=== PATIENT | female | born 1995 | race Caucasian/White ===

== ENCOUNTER 2017-06-14 23:40 | Emergency (ER) | payer BC ==
[2017-06-15 00:10] LABS: #Basophils 0.1 thou/uL (0.0-0.2); #Eosinphils 0.4 thou/uL (0.0-0.7); #Lymphocytes 3.5 thou/uL (1.20-3.40); #Monocytes 0.6 thou/uL (0.11-0.59); #Neutrophils 4.9 thou/uL (1.40-6.50); %Basophils 1.1 % (0.0-1.0); %Eosinophils 3.9 % (0.0-10.0); %Lymphocytes 37.4 % (21.0-51.0); %Monocytes 6.1 % (0.0-10.0); %Neutrophils 51.6 % (42.0-75.0); Hemoglobin 14.2 g/dL (12.0-16.0); Mean Corpuscular HGB CONC 34.5 g/dL (32.0-36.0); Mean Corpuscular Hemoglobin 31.5 pg (27.0-31.0); Mean Corpuscular Volume 91.2 fl (81.0-99.0); Mean Platelet Volume 7.3 fL (7.4-10.4); Platelet Count 309 thou/uL (130-400); RBC Distribution Width 11.8 % (11.5-14.5); Red Blood Cell (RBC) Count 4.52 mill/uL (4.20-5.40); White Blood Cell (WBC) Count 9.4 thou/uL (4.8-10.8)
[2017-06-15 00:30] LABS: BHCG - Serum Negative (NEGATIVE); Pregs Control Background? CLEAR/WHITE (CLR/WHITE); Pregs Control Bar Appear? YES (CONTROL BAR)
[2017-06-15] MEDS ORDERED: Lidocaine 1% w/Epinephrine 1:100K 20 ML VIAL ONE (00:36)
[2017-06-15 00:37] LABS: Anion Gap 20 mmol/L (10-20); BUN (Urea Nitrogen) 6 mg/dL (7.0-18.7); Calc. Creatinine Clearance 0 mL/min (70-130); Calcium 9.7 mg/dL (7.8-10.44); Carbon Dioxide 17 mmol/L (22-29); Chloride 111 mmol/L (98-107); Estimated GFR-MDRD Greater than 90; Glucose 120 mg/dL (70-105); Potassium 4.9 mmol/L (3.5-5.1); Sodium 143 mmol/L (136-145)
[2017-06-15] MEDS ORDERED: Ketorolac Tromethamine 30 MG/ML VIAL ONE (02:04)
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
== END 2017-06-15 02:39 | disposition home or self-care (01) ==
LOC: ERS 23:40
DX: S01.01XA Laceration without foreign body of scalp, initial encounter (principal); S50.12XA Contusion of left forearm, initial encounter; F32.9 Major depressive disorder, single episode, unspecified; F41.9 Anxiety disorder, unspecified; Z79.899 Other long term (current) drug therapy; V47.0XXA Car driver injured in collision with fixed or stationary object in nontraffic accident, initial encounter
CPT/HCPCS: 12002; 70450; 72125; 80048; 84703; 85025; 86850; 86900; 86901; 96361; 96374; G0390; J1885; J2001

== ENCOUNTER 2019-10-13 08:54 | Outpatient (CLI) | payer BC | END 2019-10-13 08:55 | disposition home or self-care (01) | LOC: DTY/OP 08:54 | PROVIDERS: ATTEND Surgery | DX: E66.01 Morbid (severe) obesity due to excess calories (principal) | CPT/HCPCS: 97802 ==

== ENCOUNTER 2019-12-07 08:49 | Outpatient (CLI) | payer BC, OTHER ==
--- NOTE | 2019-12-07 16:10 | RAD ---
RADIOGRAPH CHEST 2 VIEW: DATE: 12/07/2019 HISTORY: 24-year-old female for preoperative clearance FINDINGS: There is no airspace density, pulmonary edema, pleural effusion, or pneumothorax. IMPRESSION: No acute pulmonary findings.
[2019-12-07 18:24] LABS: #Basophils 0.1 thou/uL (0.0-0.2); #Eosinphils 0.1 thou/uL (0.0-0.7); #Lymphocytes 2.3 thou/uL (1.20-3.40); #Monocytes 0.4 thou/uL (0.11-0.59); #Neutrophils 4.5 thou/uL (1.40-6.50); %Basophils 1.1 % (0.0-1.0); %Eosinophils 1.4 % (0.0-10.0); %Lymphocytes 31.5 % (21.0-51.0); %Monocytes 5.4 % (0.0-10.0); %Neutrophils 60.6 % (42.0-75.0); Hemoglobin 12.6 g/dL (12.0-16.0); Mean Corpuscular HGB CONC 32.9 g/dL (32.0-36.0); Mean Corpuscular Hemoglobin 29.1 pg (27.0-31.0); Mean Corpuscular Volume 88.5 fL (78.0-98.0); Mean Platelet Volume 8.3 fL (7.4-10.4); Platelet Count 273 thou/uL (130-400); RBC Distribution Width 12.6 % (11.5-14.5); Red Blood Cell (RBC) Count 4.34 mill/uL (4.20-5.40); White Blood Cell (WBC) Count 7.3 thou/uL (4.8-10.8)
[2019-12-07 19:27] LABS: Hemoglobin A1c 5.6 % (4.0-6.0)
[2019-12-07 19:44] LABS: BHCG - Serum Negative (NEGATIVE); Pregs Control Background? CLEAR/WHITE (CLR/WHITE); Pregs Control Bar Appear? YES (CONTROL BAR)
[2019-12-07 21:56] LABS: ALT (SGPT) 78 U/L (8-55); AST (SGOT) 32 U/L (5-34); Albumin 4.3 g/dL (3.5-5.0); Alkaline Phosphatase 43 U/L (40-110); Anion Gap 16 mmol/L (10-20); BUN (Urea Nitrogen) 8 mg/dL (7.0-18.7); Bilirubin, Total 0.2 mg/dL (0.2-1.2); Calc. Creatinine Clearance 0 mL/min (70-130); Calcium 9.1 mg/dL (7.8-10.44); Carbon Dioxide 23 mmol/L (22-29); Chloride 106 mmol/L (98-107); Estimated GFR-MDRD Greater than 90; Globulin 3.2 g/dL (2.4-3.5); Glucose 91 mg/dL (70-105); Potassium 4.6 mmol/L (3.5-5.1); Protein, Total 7.5 g/dL (6.0-8.3); Sodium 140 mmol/L (136-145)
[2019-12-08 12:35] LABS: SARS-CoV-2 MS2 Positive; SARS-CoV-2 N Gene Negative; SARS-CoV-2 S Gene Negative; SARS-CoV-2 by NAA Not Detected (NotDetected); SARS-CoV-2 orf1ab Negative
--- NOTE | 2019-12-15 13:16 | EKG ---
Test Reason : EKG Blood Pressure : / mmHG Vent. Rate : 076 BPM Atrial Rate : 076 BPM P-R Int : 174 ms QRS Dur : 082 ms QT Int : 380 ms P-R-T Axes : 048 079 044 degrees QTc Int : 427 ms Normal sinus rhythm Normal ECG No previous ECGs available Confirmed by DR. Ac DYKES ([id number]) on 12/15/2019 1:16:01 PM Referred By: DR CABRERA Confirmed By:DR. Ac DYKES
== END 2019-12-07 08:50 | disposition home or self-care (01) ==
LOC: LABBT 08:49 → SCSRAD 08:50
PROVIDERS: ATTEND Surgery
DX: Z01.818 Encounter for other preprocedural examination (principal); E66.01 Morbid (severe) obesity due to excess calories; Z20.828 Contact with and (suspected) exposure to other viral communicable diseases
CPT/HCPCS: 71046; 80053; 83036; 84703; 85025; 87635; 93005; 93010; U0003

== ENCOUNTER 2019-12-07 16:30 | Inpatient (IN) | payer BC ==
[2019-12-11 09:43] VITALS: BMI 42.5
[2019-12-12] MEDS ORDERED: Ketorolac Tromethamine 30 MG/ML VIAL ONE (09:03)
[2019-12-12] MEDS ORDERED: PROPOFOL 200 MG/20 ML VIAL ONE (09:03)
[2019-12-12] MEDS ORDERED: PHENYLEPHRINE-NS 100 MCG/ML 10 ML SYRINGE ONE (09:03)
[2019-12-12] MEDS ORDERED: Lidocaine 1% PF 5 ML VIAL ONE (09:03)
[2019-12-12] MEDS ORDERED: Glycopyrrolate 0.2 MG/ML 5 ML SYRINGE ONE (09:03)
[2019-12-12] MEDS ORDERED: Dexamethasone 20 MG/5 ML VIAL ONE (09:03)
[2019-12-12] MEDS ORDERED: Esmolol 100 MG/10 ML VIAL ONE (09:03)
[2019-12-12] MEDS ORDERED: Ondansetron PF 4 MG/2 ML Vial ONE ×2 (09:03→14:31)
[2019-12-12] MEDS ORDERED: Rocuronium Bromide 10 MG/ML (10ML VIAL) ONE (09:03)
[2019-12-12] MEDS ORDERED: Heparin 5,000 UNITS/ML VIAL ONE (10:04)
[2019-12-12] MEDS ORDERED: Bupivacaine/Epinephrine 0.25% 30 ML VIAL ONE (11:09)
[2019-12-12] MEDS ORDERED: Fentanyl 250 MCG/5 ML VIAL ONE (11:26)
[2019-12-12] MEDS ORDERED: Fentanyl 100 MCG/2 ML VIAL ONE ×2 (13:18→13:45)
[2019-12-12] MEDS ORDERED: hydrALAZINE 20 MG/ML VIAL SLOW IVP PRN (14:28)
[2019-12-12] MEDS ORDERED: Promethazine HCl 25 MG/ML VIAL IM PRN ×3 (14:28→14:48)
[2019-12-12] MEDS ORDERED: diphenhydrAMINE 50 MG/ML VIAL IVP PRN ×2 (14:28→14:46)
[2019-12-12] MEDS ORDERED: Dextrose 50% Abboject 50 ML SYRINGE SLOW IVP PRN (14:28)
[2019-12-12] MEDS ORDERED: Hydrocodone-Acetamin 15 ML UDCUP PO PRN (14:28)
[2019-12-12] MEDS ORDERED: Dextrose 5% in Water 1,000 ML IV PRN (14:28)
[2019-12-12] MEDS ORDERED: Ondansetron PF 4 MG/2 ML Vial IVP PRN ×2 (14:28→14:46)
[2019-12-12] MEDS ORDERED: diphenhydrAMINE 25 MG CAP PO PRN (14:46)
[2019-12-12] MEDS ORDERED: diphenhydrAMINE 50 MG/ML VIAL IM PRN (14:46)
[2019-12-12] MEDS ORDERED: Zolpidem Tartrate 5 MG TAB PO PRN (14:46)
[2019-12-12] MEDS ORDERED: Naloxone HCl 0.4 mg/ml Vial IV PRN (14:46)
[2019-12-12] MEDS ORDERED: fentaNYL Citrate/PF 2,000 MCG in Sodium Chloride 0.9% 60 ML IV PRN (14:46)
[2019-12-12] MEDS ORDERED: Ondansetron HCl/PF 4 MG/2 ML Vial IVP PRN (14:48)
[2019-12-12] MEDS ORDERED: Promethazine HCl 25 MG/ML VIAL SLOW IVP PRN (14:48)
[2019-12-12] MEDS ORDERED: Communication Order-Pharmacy FS SCH (15:00)
--- NOTE | 2019-12-12 18:16 | OP ---
DATE OF PROCEDURE: 12/12/2019 PREOPERATIVE DIAGNOSIS: Morbid obesity with a body mass index of 42. POSTOPERATIVE DIAGNOSIS: Morbid obesity with a body mass index of 42. PROCEDURES PERFORMED: 1. Laparoscopic sleeve gastrectomy with Ethicon staple line reinforcements and 38-Swedish bougie. 2. Esophagogastroduodenoscopy. ANESTHESIA: General. ESTIMATED BLOOD LOSS: 50 mL. COMPLICATIONS: None. FINDINGS: Normal postoperative EGD. DESCRIPTION OF PROCEDURE: The patient was taken to the operating room and laid supine on the operating room table. After general anesthetic was obtained, an OG was placed, and the arms and legs were double strapped to bariatric table. The abdomen was prepped and draped in a sterile fashion. Left subcostal 5 mm Optiview trocar was placed in usual fashion. High-flow pneumoperitoneum was obtained. Left and right abdominal 12 mm ports as well as a right subcostal 5 mm port were placed under direct visualization. A 5 mm incision made at the xiphoid, and Alber was used to raise the liver off the GE junction. Short gastrics were taken down from midbody of stomach to left pineda of diaphragm. Left pineda, posterior fundus, and angle of His were completely dissected. Short gastrics were taken down to a distance of 6 cm proximal to the pylorus. OG tube was removed and a 38 bougie was brought in and its tip left in the antrum of the stomach. Multiple loads of Mamou stapling device with the Ethicon staple line reinforcements were used to form the sleeve. The first as a green load fired up at a distance of 6 cm proximal to the pylorus up towards the incisura. Multiple loads were then fired up along the bougie. Stomach was completely transected at the angle of His. The stomach was removed from the left abdominal incision. This fascial defect was closed using GraNee needle and Vicryl tie. There was no bleeding on the staple line. There was no bleeding in the abdomen. The Alber retractor was removed under direct visualization without bleeding. EGD scope was passed to esophagus and stomach to the level of duodenum without obstruction. There was no stricture at the incisura. There was no involvement of the staple line at the GE junction. EGD scope was used to decompress the stomach, it was pulled and removed. All port sites were infiltrated using local anesthetic. All ports were removed under camera visualization. Pneumoperitoneum was let down. The Vicryl was used to close the fascial defect from the left abdominal incisions. All incisions were irrigated and closed using 4-0 Monocryl and Dermabond. The patient was sent to Recovery in stable condition. All instrument counts, needle counts, and lap counts were correct. Job ID: [id number]
[2019-12-12] MEDS: D5 1/2 NS w/20 mEq KCL 1,000 ML IV SCH (22:02)
[2019-12-13 05:23] LABS: #Lymphocytes 2.9 thou/uL (1.20-3.40); #Monocytes 0.7 thou/uL (0.11-0.59); #Neutrophils 6.7 thou/uL (1.40-6.50); %Basophils 0.4 % (0.0-1.0); %Eosinophils 0.2 % (0.0-10.0); %Lymphocytes 27.6 % (21.0-51.0); %Monocytes 6.8 % (0.0-10.0); Hemoglobin 12.3 g/dL (12.0-16.0); Mean Corpuscular HGB CONC 33.2 g/dL (32.0-36.0); Mean Corpuscular Hemoglobin 29.4 pg (27.0-31.0); Mean Corpuscular Volume 88.6 fL (78.0-98.0); Mean Platelet Volume 8.7 fL (7.4-10.4); Platelet Count 262 thou/uL (130-400); RBC Distribution Width 12.6 % (11.5-14.5); Red Blood Cell (RBC) Count 4.17 mill/uL (4.20-5.40); White Blood Cell (WBC) Count 10.4 thou/uL (4.8-10.8)
[2019-12-13] MEDS: D5 1/2 NS w/20 mEq KCL 1,000 ML IV SCH (05:31)
[2019-12-13 05:41] LABS: Anion Gap 13 mmol/L (10-20); BUN (Urea Nitrogen) 4 mg/dL (7.0-18.7); Calc. Creatinine Clearance 194 mL/min (70-130); Calcium 8.8 mg/dL (7.8-10.44); Carbon Dioxide 24 mmol/L (22-29); Chloride 104 mmol/L (98-107); Estimated GFR-MDRD Greater than 90; Glucose 144 mg/dL (70-105); Potassium 3.9 mmol/L (3.5-5.1); Sodium 137 mmol/L (136-145)
[2019-12-13] MEDS ORDERED: Pantoprazole 40 MG VIAL IVP SCH (09:00)
[2019-12-13] MEDS ORDERED: Venlafaxine HCl XR 75 MG CAP PO SCH (09:00)
[2019-12-13] MEDS ORDERED: E ESTRADIOL PO SCH (09:00)
[2019-12-13] MEDS ORDERED: DESOG E ESTRADIOL PO SCH (09:00)
--- NOTE | 2019-12-13 11:32 | DIS ---
DATE OF ADMISSION: 12/12/2019 DATE OF DISCHARGE: 12/13/2019 ADMIT DIAGNOSIS: Morbid obesity. DISCHARGE DIAGNOSIS: Morbid obesity. PROCEDURE PERFORMED: Laparoscopic sleeve by Dr. Hill without complication. CONDITION ON DISCHARGE: Improved. STAFF: Dr. Hill. HOSPITAL COURSE: On postop day 1, the patient is doing well. She is tolerating liquids. She is discharged home. She will follow up with me in 2 weeks. Job ID: [id number]
[2019-12-13 12:59] VITALS: BP 118/73; TEMP 98.6
== END 2019-12-13 14:01 | disposition home or self-care (01) | DRG 621 ==
LOC: SURG A 12-12 09:44
PROVIDERS: ADMIT Surgery; ATTEND Surgery
PROC: 0DB64Z3 Excision of Stomach, Percutaneous Endoscopic Approach, Vertical (ICD-10-PCS; principal; 2019-12-12)
PROC: 0DJ08ZZ Inspection of Upper Intestinal Tract, Via Natural or Artificial Opening Endoscopic (ICD-10-PCS; 2019-12-12)
DX: E66.01 Morbid (severe) obesity due to excess calories (principal); Z68.41 Body mass index [BMI] 40.0-44.9, adult; Z20.828 Contact with and (suspected) exposure to other viral communicable diseases; F41.9 Anxiety disorder, unspecified; Z79.899 Other long term (current) drug therapy; F32.9 Major depressive disorder, single episode, unspecified
CPT/HCPCS: 36415; 80048; 85025; 88307; 88312; C9113; J0690; J1100; J1644; J1885; J2405; J2704; J3010; J3480